=== PATIENT | male | born 1980 | race Caucasian/White ===

== ENCOUNTER 2017-07-11 00:26 | Emergency (ER) | payer BC ==
[2017-07-11 00:53] VITALS: BP 143/94; PULSE 99; TEMP 98.3; BMI 35.4
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
== END 2017-07-11 02:25 | disposition home or self-care (01) ==
LOC: JER 00:26
DX: S09.92XA Unspecified injury of nose, initial encounter (principal); W50.0XXA Accidental hit or strike by another person, initial encounter; Y93.89 Activity, other specified; Y92.9 Unspecified place or not applicable
CPT/HCPCS: 99281-25